=== PATIENT | female | born 1965 | race African-American/Black ===

== ENCOUNTER 2017-06-05 23:02 | Emergency (ER) | payer OTHER ==
[~2017-06-05] VITALS: Ht 165.1 cm; Wt 79.6 kg
[2017-06-05 23:36] LABS: HEMATOCRIT 41.2 % (36.0-46.0); MCH 28.5 PG (29.0-34.0); MCHC 33.3 G/DL (30.0-36.0); MCV 85.7 FL (83-99); RBC DIS.WIDTH-CV 13.6 % (11.8-14.6); RBC DIS.WIDTH-SD 42.3 % (39-53); RED BLOOD COUNT 4.81 M/uL (3.80-5.20); WHITE BLOOD COUNT 11.1 K/uL (4.1-10.2)
[2017-06-05 23:46] LABS: CHLORIDE 107 mEq/L (99-109); POTASSIUM 3.4 mEq/L (3.7-5.4); SODIUM 138 mEq/L (136-147)
[2017-06-05 23:47] LABS: GLUCOSE 122 mg/dL (70-99)
[2017-06-05 23:49] LABS: ANION GAP 11 MEQ/L (2-14)
[2017-06-05 23:51] LABS: GFR ESTIMATE (CALCULATED) > 59 mL/min/
[2017-06-05 23:52] LABS: UREA NITROGEN (BUN) 9 mg/dL (9-23)
[2017-06-05 23:56] LABS: TROP-I INTERPRETATION NEGATIVE; TROPONIN-I < 0.01 ng/mL (0.0-0.30)
[2017-06-06 00:47] LABS: MEAN PLAT.VOLUME 12.2 uM^3 (9.5-12.4); PLAT.SUFFICIENCY ADEQUATE; PLATELET COUNT 241 K/uL (156-360)
[2017-06-06] MEDS ORDERED: TOPROL XL25 MG PO (02:02)
[2017-06-06 02:16] LABS: TROP-I INTERPRETATION NEGATIVE; TROPONIN-I < 0.01 ng/mL (0.0-0.30)
[2017-06-06 02:26] VITALS: BP 173/95
== END 2017-06-06 02:27 | disposition home or self-care (01) ==
LOC: EME 23:02
PROVIDERS: Emergency Medicine
DX: R00.0 Tachycardia, unspecified (principal); R06.02 Shortness of breath; R42 Dizziness and giddiness; R00.2 Palpitations; I10 Essential (primary) hypertension
CPT/HCPCS: 71010; 80048; 84484; 85027; 85379; 93005; 99281; 99285